=== PATIENT | female | born 1950 ===

== ENCOUNTER 2023-05-17 09:18 | Outpatient (CLI) | payer OTHER ==
[2023-05-17 11:08] LABS: CREATININE SERUM 1.12 mg/dL (0.55-1.02); GFR 48.09
== END 2023-05-17 13:45 | disposition home or self-care (01) ==
LOC: LAB 09:18
PROVIDERS: ATTEND Radiology Diagnostic Radiology
DX: R10.2 Pelvic and perineal pain (principal); R93.2 Abnormal findings on diagnostic imaging of liver and biliary tract

== ENCOUNTER 2023-05-17 10:43 | Outpatient (CLI) | payer OTHER | END 2023-05-17 10:49 | disposition home or self-care (01) | LOC: MRI 10:43 | PROVIDERS: ATTEND Obstetrics & Gynecology | DX: R10.2 Pelvic and perineal pain (principal); R93.89 Abnormal findings on diagnostic imaging of other specified body structures | CPT/HCPCS: 72196 ==